=== PATIENT | female | born 1950 | race Caucasian/White ===

== ENCOUNTER 2019-07-14 05:47 | Day surgery (SDC) | payer MEDICARE ==
[2019-07-14] MEDS: Lactated Ringers 1,000 ML IV SCH ×2 (06:27→07:04)
[2019-07-14] MEDS ORDERED: DIPRIVAN 200 MG/20 ML IV ONE (07:15)
[2019-07-14] MEDS ORDERED: Ketamine HCl 50 MG/ML ONE (07:15)
[2019-07-14] MEDS ORDERED: ROBINUL ONE (08:02)
[2019-07-14 08:52] VITALS: PULSE 66
[2019-07-14 09:10] VITALS: BP 151/77; O2SAT 99
--- NOTE | 2019-07-14 11:12 | OP ---
SURGERY DATE/TIME: 07/14/2019 0753 PREOPERATIVE DIAGNOSIS: Positive Cologuard. POSTOPERATIVE DIAGNOSIS: Mild colitis sigmoid colon and scattered sigmoid diverticula. PROCEDURE: Colonoscopy with cold forceps biopsy. SURGEON: Dr. Lopez. ANESTHESIA: Medications given by anesthesia department. HISTORY: The patient is a 69 year-old white female presenting now for history of positive Cologuard. The patient had previous colonoscopy five years ago which was normal. The patient was felt the need to have endoscopic evaluation. She was appraised of the risks of the procedure including the risk of perforation, phlebitis, untoward reaction to medication, bleeding and missed lesions. The patient verbalized her understanding and desired to have the procedure performed. DESCRIPTION OF PROCEDURE: The patient was given the medications by the anesthesia department. She had continuous pulse oximetry, ECG monitoring, intermittent blood pressure monitoring and tidal CO2 monitoring during the examination. She was placed in the left lateral decubitus position. A digital rectal examination was performed and revealed normal anal sphincter tone and no masses. The flexible Olympus pediatric colonoscope was used to intubate the rectum. A view of the colon was developed sequentially to the cecum. Upon insertion and withdrawal, there was noted an area near the first curve in the sigmoid colon which appeared to be somewhat villous in appearance and this was biopsied to rule out any adenomatous change. There was also noted to be some scattered sigmoid diverticula throughout the sigmoid colon. The scope was removed from the patient who tolerated the procedure well and was sent back to OP recovery in good condition. The prep was noted to be fair to good.
== END 2019-07-14 09:12 | disposition home or self-care (01) ==
LOC: SDC 05:47
PROVIDERS: ATTEND Family Medicine
DX: Z12.11 Encounter for screening for malignant neoplasm of colon (principal); K52.9 Noninfective gastroenteritis and colitis, unspecified; K57.30 Diverticulosis of large intestine without perforation or abscess without bleeding
CPT/HCPCS: J2704